=== PATIENT | male | born 1960 | race Caucasian/White ===

== ENCOUNTER 2019-05-18 14:52 | Emergency (ER) | payer MEDICARE, MEDICAID ==
[~2019-05-18] VITALS: Ht 185.5 cm; Wt 110.9 kg
--- NOTE | 2019-05-18 15:11 | ED Integumentary General ---
General Stated Complaint: PICC LINE BOIL Source: patient History of Present Illness Date Seen by Provider: May 18, 2019 Time Seen by Provider: 15:05 Initial Comments 59-year-old male presents to small cutaneous abscess and a PICC insertion site on his right upper arm. Patient reports a PICC line came out in October. Patient reports he had a PICC for long-term antibiotics for a brain abscess. Patient has a follow-up MRI next Tuesday for the brain abscess didn't see how he is doing. Patient noticed a small abscess yesterday. He has no fevers chills or surrounding erythema. Patient denies any other systemic complaints at this time. Allergies and Home Medications Allergies Coded Allergies: No Known Drug Allergies (Unverified , 05/18/19) Patient Home Medication List Home Medication List Reviewed: Yes Review of Systems Review of Systems Constitutional: no symptoms reported Respiratory: no symptoms reported Cardiovascular: no symptoms reported Gastrointestinal: no symptoms reported Musculoskeletal: no symptoms reported Skin: see HPI Psychiatric/Neurological: No Symptoms Reported Past Xagolnw-Rynieg-Givhbs Hx Past Med/Social Hx: Reviewed Nursing Past Med/Soc Hx Physical Exam Vital Signs Capillary Refill : General Appearance: WD/WN, no apparent distress Cardiovascular: normal peripheral pulses, regular rate, rhythm Respiratory: lungs clear, normal breath sounds Skin: other (small 1 cm cutaneous abscess at PICC line insertion site near what appears be a chronic keloid) Procedures/Interventions I&D : Blade Size: 11 I & D Procedure: betadine prep Progress Moderate amount of purulent drainage. Patient tolerated well. Progress/Results/Core Measures Results/Orders My Orders Orders - JOE CAZARES DO Wound Culture (05/18/19 15:15) Progress Progress Note : Time: 15:20 Progress Note Patient with a moderate amount of firm purulent drainage. Patient will be placed on Bactrim. I recommend he follow up with his primary care provider next week for a recheck of symptoms and continuation of care. Patient is stable will be discharged home in stable condition Departure Impression Primary Impression: Cutaneous abscess of left upper extremity Disposition: HOME, SELF-CARE Condition: Stable Departure-Patient Inst. Referrals: SELF,FEMI MCDOWELL (PCP/Family) Primary Care Physician Follow-up next week for recheck of symptoms Patient Instructions: Abscess Incision and Drainage (DC), Skin Abscess Scripts Sulfamethoxazole/Trimethoprim (Bactrim Ds Tablet) 1 Each Tablet 1 EACH PO BID for 7 Days, #14 TAB Prov: JOE CAZARES DO 05/18/19 JOE CAZARES DO May 18, 2019 15:11
[2019-05-18] MEDS ORDERED: SULF1TAB35 PO (15:23)
[2019-05-18 15:53] VITALS: BP 110/88
== END 2019-05-18 16:00 | disposition home or self-care (01) ==
LOC: EDUNIT# 14:52 → ER FS 14:53
DX: L02.414 Cutaneous abscess of left upper limb (principal)
CPT/HCPCS: 87070; 87077; 87205; 99282

== ENCOUNTER → 2020-05-07 | Outpatient (CLI) | payer MEDICARE, MEDICAID ==
[~2020-05-07] MED LIST: GADOBUTROL 15 MMOL/15 ML (GADAVIST) VIAL IV ONE; SULF1TAB35 PO
[2020-05-07 08:36] LABS: ALBUMIN 4.5 GM/DL (3.2-4.5); CHLORIDE 103 MMOL/L (98-107); POTASSIUM 3.9 MMOL/L (3.6-5.0); SODIUM 138 MMOL/L (135-145)
[2020-05-07 08:37] LABS: CALCIUM 9.6 MG/DL (8.5-10.1)
[2020-05-07 08:38] LABS: GLUCOSE 101 MG/DL (70-105); TOTAL PROTEIN 6.9 GM/DL (6.4-8.2)
[2020-05-07 08:39] LABS: CARBON DIOXIDE 23 MMOL/L (21-32)
[2020-05-07 08:40] LABS: BILIRUBIN,TOTAL 0.5 MG/DL (0.1-1.0)
--- NOTE | 2020-05-07 08:41 | Diagnostic Imaging Report ---
Clinical indication: Pre-screening for MRI. Patient has history of brain surgery. Exam: X-ray of the skull, AP and lateral view of the orbits. Comparison: None. Findings: There are craniotomy plates overlying the right side of the head craniotomy region. Dental fillings are noted. There is no evidence of radiodense foreign object on this exam. There is no other craniofacial bone abnormality. The visualized paranasal sinuses are grossly unremarkable. IMPRESSION: There is no evidence of radiodense foreign object that would prevent patient from getting an MRI. Dictated by: Dictated on workstation # [id number]
[2020-05-07 08:42] LABS: ALKALINE PHOSPHATASE 97 U/L (40-136); CREATININE SERUM 1.06 MG/DL (0.60-1.30); GFR ESTIMATED > 60
[2020-05-07 08:43] LABS: BUN/CREATININE RATIO 12
[2020-05-07 08:45] LABS: ALANINE AMINOTRANSFERASE 20 U/L (0-55)
--- NOTE | 2020-05-07 13:25 | Diagnostic Imaging Report ---
PROCEDURE: MR imaging of the brain with and without contrast. TECHNIQUE: Multiplanar, multisequence MR imaging of the brain was performed with and without contrast. INDICATION: Brain abscess one year ago. Status post craniotomy. COMPARISON: None available. FINDINGS: Postoperative findings of right frontal craniotomy and underlying resection bed in the right frontal lobe measures up to 4 cm and abuts the right lateral ventricle. There is surrounding gliosis with no appreciable contrast enhancement. Moderate additional nonspecific T2 hyperintensities in the supratentorial white matter compatible with chronic small vessel ischemic change. Normal morphology of the major midline structures, sella, posterior fossa and cerebellar pontine angle. Normal intracranial flow voids. No hydrocephalus or extra-axial fluid collections. No hemosiderin deposition or evidence of intracranial hemorrhage. No restricted water diffusion. The orbits are unremarkable. The paranasal sinuses and mastoids are clear. Normal bone marrow signal. IMPRESSION: Postoperative findings of a right frontal craniotomy and underlying resection bed in the right frontal lobe. Although there is surrounding gliosis, there is no associated enhancement or mass identified. No acute intracranial MRI findings. Dictated by: Dictated on workstation # [id number]
== END ==
LOC: RAD 09:30
PROVIDERS: ATTEND Neurological Surgery
DX: G06.0 Intracranial abscess and granuloma (principal); Z98.890 Other specified postprocedural states
CPT/HCPCS: 36415; 70553; 80053

== ENCOUNTER 2021-01-19 05:39 | Outpatient (CLI) | payer MEDICARE, MEDICAID ==
[~2021-01-19] VITALS: Ht 185.4 cm; Wt 117.9 kg
[~2021-01-19 05:39] MED LIST changes: -GADOBUTROL 15 MMOL/15 ML (GADAVIST) VIAL IV ONE
[2021-01-19] MEDS ORDERED: BUPR300T98 PO (08:54)
[2021-01-19] MEDS ORDERED: DIAZ10TA3 PO (08:54)
[2021-01-19] MEDS ORDERED: METF-399 PO (08:54)
[2021-01-19] MEDS ORDERED: HALO10TA PO (08:54)
[2021-01-19] MEDS ORDERED: BENZ1TAB6 PO (08:54)
[2021-01-19] MEDS ORDERED: GABA-486 PO (08:54)
== END 2021-01-19 13:17 | disposition home or self-care (01) ==
LOC: PREOP 05:39
PROVIDERS: ATTEND Surgery
DX: Z01.818 Encounter for other preprocedural examination (principal)

== ENCOUNTER 2021-01-26 09:24 | Day surgery (SDC) | payer MEDICARE, MEDICAID ==
[~2021-01-26] VITALS: Ht 185.4 cm; Wt 117.9 kg
[~2021-01-26 09:24] MED LIST changes: +BENZ1TAB6 PO; +BUPR300T98 PO; +DIAZ10TA3 PO; +GABA-486 PO; +HALO10TA PO; +METF-399 PO
[2021-01-26] MEDS ORDERED: LACTATED RINGERS 1,000 ML IV STA (09:47)
[2021-01-26] MEDS ORDERED: PROPOFOL INJECTION 50 ML IV ONE (10:09)
[2021-01-26 10:41] VITALS: BP 111/67
--- NOTE | 2021-01-26 10:41 | Endoscopy Discharge Instruct ---
Endo Procedure/Findings Findings 1.: Diverticulosis 2.: Internal Hemorrhoids 3.: Other Findings (poor prep, retained fecal material) Discharge Instructions - Activity: You might feel a little sleepy until tomorrow. This is due to the medicine you received to relax you. Until tomorrow, you should: NOT drive a car, operate machinery or power tools. NOT drink any alcoholic beverages. NOT make any important decisions or sign importortant papers. Do not return to work until tomorrow, unless otherwise instructed. Resume previous activities tomorrow. Diet: Start by taking liquids. If you tolerate liquids, advance to solid food. 1.: Colonoscopy in 1 year Notify Physician - If you experience excessive bleeding, unusual abdominal pain, fever, or chest pain, contact your doctor immediately. BEAR HART DO Jan 26, 2021 10:41
--- NOTE | 2021-01-26 10:41 | Progress Note-Post Operative ---
Post-Operative Progess Note Surgeon (s)/Card Table Attendant (s) Surgeon BEAR HART DO Card Table Attendant: none Pre-Operative Diagnosis +Cologuard Post-Operative Diagnosis poor prep Diverticula Int hemorrhoids Procedure & Operative Findings Date of Procedure 01/26/21 Procedure Performed/Findings After informed consent was obtained, the patient was brought to the endoscopy suite and placed in the bed in the left lateral decubitus position. He was administered IV sedation by the BUSINESS MANAGER COL[employer] UNIVERSITY, who then monitored his vitals the entire time, heart rate, blood pressure and pulse ox and the scope was inserted, started the colonoscopy. Pushed all the way into about 160 cm able to get all the way to cecum, took a picture of the appendiceal orifice, noted the ileocecal valve and then slowly withdrew the scope, insufflating the circumferential bonilla looking the cecum, up the ascending colon to the hepatic flexure, then down the transverse colon, splenic flexure, into the descending colon, down into the sigmoid and finally into the rectum, retroflexed in the rectal vault, saw some minimal internal hemorrhoids and took a picture of this. He had diverticula seen on left and right side; unfortunately, he had a lot of retained fecal material and unable to suction all of this out because of large pieces. 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 Could not see all the bonilla, so may have missed a polyp; I don't think I missed anything big. The patient tolerated the procedure and he recovered in the endoscopy suite. Anesthesia Type IV sedation by BUSINESS MANAGER [employer]IV[employer]ITY Estimated Blood Loss Estimated blood loss (mL): none Specimens/Packing Specimens Removed none BEAR HART DO Jan 26, 2021 10:41
[2021-01-26 10:46] VITALS: BP 103/65
[2021-01-26 10:50] VITALS: BP 132/82
[2021-01-26 11:12] VITALS: BP 132/82
[2021-01-26 11:20] VITALS: BP 132/79
--- NOTE | 2021-01-26 11:37 | Anesthesia-General Post-Op ---
MAC Patient Condition Mental Status/LOC: Same as Preop Cardiovascular: Satisfactory Nausea/Vomiting: Absent Respiratory: Satisfactory Pain: Controlled Complications: Absent Post Op Complications Complications None Follow Up Care/Instructions Patient Instructions None needed. Anesthesiology Discharge Order Discharge Order Patient is doing well, no complaints, stable vital signs, no apparent adverse anesthesia problems. No complications reported per nursing. GEE AMADOR CRNA Jan 26, 2021 11:37
[2021-01-26 11:50] VITALS: BP 132/79
== END 2021-01-26 11:40 | disposition home or self-care (01) ==
LOC: ENDO 09:24
PROVIDERS: ATTEND Surgery
DX: K57.30 Diverticulosis of large intestine without perforation or abscess without bleeding (principal); K64.8 Other hemorrhoids; R19.5 Other fecal abnormalities; J40 Bronchitis, not specified as acute or chronic; F20.9 Schizophrenia, unspecified; F17.210 Nicotine dependence, cigarettes, uncomplicated; Z79.2 Long term (current) use of antibiotics; Z79.899 Other long term (current) drug therapy

== ENCOUNTER → 2022-03-22 | Outpatient (CLI) | payer MEDICARE, MEDICAID ==
[~2022-03-22] MED LIST changes: -SULF1TAB35 PO; +SULF1TAB38 PO
--- NOTE | 2022-03-22 15:14 | Diagnostic Imaging Report ---
TIME OF EXAM: 03/22/2022 10:08 AM REASON FOR EXAM: Lung cancer screening. 49 pack year smoking history. COMPARISON: None. TECHNIQUE: Low Dose CT helical images obtained through the chest. Sagittal and coronal reformats were obtained and reviewed. Dose reduction techniques were utilized. CTDI vol: 2.22 mGy FINDINGS: Nodules: -- A) 9 x 7 mm, indeterminate noncalcified solid [right middle lobe] nodule (image 158 series 2 and image 40 series 602) Lungs: Lung volumes are normal. Scattered centrilobular emphysema is seen. No significant fibrosis is present. There is no appreciable bronchiectasis. No pulmonary mass or consolidation is present. No central endoluminal airway lesion is seen. Heart and Mediastinum: Heart size is within normal limits. Small amount of coronary calcifications are present. Aortic atherosclerosis is present without aneurysm. No pericardial effusion is present. No axillary, supraclavicular, mediastinal, internal mammary, or hilar adenopathy is present by CT size criteria. Normal size and attenuation of the visualized thyroid gland. Pleura: Normal pleural spaces. No effusion or pneumothorax. No pleural nodularity or mass. Abdomen: Nonspecific thickening of the adrenal glands is noted. No acute abnormalities are seen in the included upper abdomen. Bones and soft tissues: Regional skeletal and soft tissue structures are age-appropriate. IMPRESSION: 1. Solid nodule in the right middle lobe measuring up to 0.9 cm. Recommend short interval follow-up with chest CT in 3 months. Alternatively, PET/CT may be considered to evaluate for hypermetabolic activity. 2. No thoracic lymphadenopathy. 3. Centrilobular emphysema. Result code: Category 4: Suspicious Follow up: 3 month LDCT or PET/CT Dictated by: Dictated on workstation # [id number]
== END ==
LOC: RAD 09:24
PROVIDERS: ATTEND Family Medicine
DX: Z12.2 Encounter for screening for malignant neoplasm of respiratory organs (principal); J43.2 Centrilobular emphysema; F17.210 Nicotine dependence, cigarettes, uncomplicated
CPT/HCPCS: 71271

== ENCOUNTER 2022-05-19 06:21 | Outpatient (CLI) | payer MEDICARE, MEDICAID ==
[~2022-05-19] VITALS: Ht 185.4 cm; Wt 114.8 kg
[2022-05-19] MEDS ORDERED: ACHD5005 PO (11:19)
== END 2022-05-19 11:24 | disposition home or self-care (01) ==
LOC: PREOP 06:21
PROVIDERS: ATTEND Surgery
DX: Z01.818 Encounter for other preprocedural examination (principal)

== ENCOUNTER 2022-05-31 08:36 | Day surgery (SDC) | payer MEDICARE, MEDICAID ==
[~2022-05-31] VITALS: Ht 185.4 cm; Wt 114.8 kg
[~2022-05-31 08:36] MED LIST changes: +ACHD5005 PO
[2022-05-31] MEDS ORDERED: LACTATED RINGERS 1,000 ML IV STA (08:40)
[2022-05-31 09:00] VITALS: BP 130/83
--- NOTE | 2022-05-31 09:03 | Progress Note-Pre Operative ---
Pre-Operative Progress Note Date of Available H&P: May 18, 2022 Date H&P Reviewed: May 31, 2022 Time H&P Reviewed: 09:02 History & Physical: H&P Reviewed, Patient Examed, No changes noted Pre-Operative Diagnosis: +BEAR Rivas DO May 31, 2022 09:03
[2022-05-31] MEDS ORDERED: PROPOFOL INJECTION 50 ML IV ONE (10:30)
--- NOTE | 2022-05-31 11:18 | Progress Note-Post Operative ---
Post-Operative Progess Note Surgeon (s)/Flight Inspector (s) Surgeon BEAR HART DO Flight Inspector: Sandra Coronado, WILLISII Pre-Operative Diagnosis +Cologuard Post-Operative Diagnosis Polyps diverticula int hemorrhoids Procedure & Operative Findings Date of Procedure 05/31/22 Procedure Performed/Findings Colonoscopy with snare polypectomy PROCEDURE NOTE: After informed consent was obtained, the patient was brought to the endoscopy suite, placed in bed in left lateral decubitus position. He was administered IV sedation by the DRIER OPERATOR HEAD who then monitored his vitals the entire time, heart rate, blood pressure and pulse ox and the scope was inserted, pushed all the way to about 150 cm; on the way in noted diverticula and took a picture of them. Pushed into the cecum, took a picture of appendiceal orifice and then slowly withdrew the scope insufflating to look circumferentially at the bonilla starting in the cecum, up the ascending colon; where I found a polyp and removed with snare. Then to the hepatic flexure, down the transverse colon to the splenic flexure, and into the descending colon. Here I found another polyp that was removed with snare polypectomy. Into the sigmoid where I found another polyp; which was removed. Finally into the rectal vault where I found two polyps and also removed them. I then pulled the scope out and took a picture of the internal hemorrhoids. The patient tolerated the procedure. He was recovered in endoscopy suite. Recommended for repeat colonoscopy in 3 years. Anesthesia Type IV sedation by DRIER OPERATOR HEAD Estimated Blood Loss Estimated blood loss (mL): scant Specimens/Packing Specimens Removed asc polyp desc polyp sigmoid polyp rectal polyp x 2 BEAR HART DO May 31, 2022 11:18
--- NOTE | 2022-05-31 11:19 | Endoscopy Discharge Instruct ---
Endo Procedure/Findings Findings 1.: Polyp 2.: Diverticulosis 3.: Internal Hemorrhoids Discharge Instructions - Activity: You might feel a little sleepy until tomorrow. This is due to the medicine you received to relax you. Until tomorrow, you should: NOT drive a car, operate machinery or power tools. NOT drink any alcoholic beverages. NOT make any important decisions or sign importortant papers. Do not return to work until tomorrow, unless otherwise instructed. Resume previous activities tomorrow. Diet: Start by taking liquids. If you tolerate liquids, advance to solid food. 1.: Colonscopy in 3 years Notify Physician - If you experience excessive bleeding, unusual abdominal pain, fever, or chest pain, contact your doctor immediately. BEAR HART DO May 31, 2022 11:19
--- NOTE | 2022-05-31 11:19 | Anesthesia-General Post-Op ---
MAC Patient Condition Mental Status/LOC: Same as Preop Cardiovascular: Satisfactory Nausea/Vomiting: Absent Respiratory: Satisfactory Pain: Controlled Complications: Absent Post Op Complications Complications None Follow Up Care/Instructions Patient Instructions None needed. Anesthesiology Discharge Order Discharge Order Patient is doing well, no complaints, stable vital signs, no apparent adverse anesthesia problems. No complications reported per nursing. NORA HUANG CRNA May 31, 2022 11:19
[2022-05-31 11:20] VITALS: BP 129/78
[2022-05-31 11:25] VITALS: BP 116/78
== END 2022-05-31 11:47 | disposition home or self-care (01) ==
LOC: ENDO 08:36
PROVIDERS: ATTEND Surgery
DX: D12.2 Benign neoplasm of ascending colon (principal); D12.4 Benign neoplasm of descending colon; K63.5 Polyp of colon; K62.1 Rectal polyp; K57.30 Diverticulosis of large intestine without perforation or abscess without bleeding; K64.8 Other hemorrhoids; E11.9 Type 2 diabetes mellitus without complications; E66.9 Obesity, unspecified; Z68.33 Body mass index [BMI] 33.0-33.9, adult; F17.210 Nicotine dependence, cigarettes, uncomplicated; Z79.84 Long term (current) use of oral hypoglycemic drugs
CPT/HCPCS: 82947

== ENCOUNTER → 2022-06-29 | Outpatient (CLI) | payer MEDICARE, MEDICAID ==
--- NOTE | 2022-06-29 14:46 | Diagnostic Imaging Report ---
Indication: Lung nodule follow-up TECHNIQUE: Multiple contiguous axial images were obtained through the chest without the use of intravenous contrast. Auto Exposure Controls were utilized during the CT exam to meet ALARA standards for radiation dose reduction. CT chest obtained without IV contrast COMPARISON: 03/22/2022. There are no enlarged mediastinal or hilar nodes. There are no enlarged axillary nodes or chest wall lesions. There is no pleural or pericardial fluid. Aorta is not aneurysmal. Visualized portions of the upper abdomen demonstrate a small cyst in the left kidney anteriorly. There is thickening or nodularity noted in the left adrenal gland which appears similar to the prior study. Lung parenchymal windows demonstrate emphysematous changes. There is limitation secondary to motion artifact. There is no consolidation. The right middle lobe nodule described in the previous study is less well-seen due to motion artifact but appears to be without significant change in size. IMPRESSION: Unfortunately, the patient had significant respiratory motion during the scan, but the right middle lobe 9 x 7 mm nodule described on the previous screening lung CT appears without significant change. Recommend continued 3 month follow-up. There are diffuse emphysematous changes. There is no acute abnormality otherwise. Dictated by: Dictated on workstation # [id number]
== END ==
LOC: RAD FS 07:47
PROVIDERS: ATTEND Family Medicine
DX: J43.9 Emphysema, unspecified (principal); R91.1 Solitary pulmonary nodule
CPT/HCPCS: 71250

== ENCOUNTER → 2022-10-01 | Outpatient (CLI) | payer MEDICARE, MEDICAID ==
--- NOTE | 2022-10-01 14:28 | Diagnostic Imaging Report ---
PROCEDURE: CT chest without contrast. TECHNIQUE: Multiple contiguous axial images were obtained through the chest without the use of intravenous contrast. Auto Exposure Controls were utilized during the CT exam to meet ALARA standards for radiation dose reduction. INDICATION: Pulmonary nodule. COMPARISON: 06/29/2022. FINDINGS: There has been further increase in size of medial right middle lobe pulmonary nodule. This reaches 1.6 x 1.1 cm and has irregular margins. Otherwise, mosaic appearance of the lungs with areas of air trapping are again noted. There is no other evidence of pulmonary mass or consolidation. There is no pathologically enlarged adenopathy in the chest. Coronary artery calcification is noted. There is low density in the liver indicating steatosis with continued enlargement of the adrenal glands, greater on the left. This is likely related to adenoma. IMPRESSION: Further increase in size of irregular right middle lobe nodule is suspicious for malignancy. This could be assessed with PET imaging which would also allow evaluation of adrenal glands. Although the nodule is intimately associated with pulmonary vasculature, consideration could be given to percutaneous biopsy of the right middle lobe lesion, if warranted. Dictated by: Dictated on workstation # [id number]
== END ==
LOC: RAD FS 13:08
PROVIDERS: ATTEND Family Medicine
DX: R91.1 Solitary pulmonary nodule (principal)
CPT/HCPCS: 71250

== ENCOUNTER → 2022-10-28 | Outpatient (CLI) | payer OTHER, MEDICAID ==
[~2022-10-28] MED LIST changes: -BENZ1TAB6 PO; +BENZ1TAB74 PO; +CATHETER FLUSH 10 ML SYR IVP PRN
--- NOTE | 2022-10-29 09:11 | Diagnostic Imaging Report ---
INDICATION: Pulmonary nodule, initial staging. Serum blood glucose level at the time of injection is 113 mg/dL. The patient was administered 9.9 mCi F-18 FDG intravenously in the right antecubital location and PET imaging was performed from the top of the skull to mid thighs. Noncontrast CT was also performed for attenuation correction and anatomic correlation. COMPARISON is made with prior CT of the chest from 10/01/2022. There appear to be postoperative changes of right frontal craniotomy. No suspicious areas of intracranial hypermetabolism are identified. Soft tissues of the neck are unremarkable. The irregular nodule noted in the right middle lobe on recent CT does show some hypermetabolism with an SUV max of 4.7. No other pulmonary parenchymal regions of hypermetabolism are identified. There is no mediastinal or hilar hypermetabolism. Imaging through the abdomen and pelvis demonstrates physiologic activity throughout the gastrointestinal and genitourinary tracts. No suspicious areas of hypermetabolism are identified. Specifically, the adrenal glands are unremarkable and they are do not show FDG avidity. IMPRESSION: The right middle lobe pulmonary nodule does show FDG avidity and is concerning for a small malignancy. No other areas of hypermetabolism are identified. Dictated by: Dictated on workstation # [id number]
== END ==
LOC: RAD 11:15
PROVIDERS: ATTEND Family Medicine
DX: R91.1 Solitary pulmonary nodule (principal)
CPT/HCPCS: 78815; 82947; A9552

== ENCOUNTER 2023-01-31 09:38 | Outpatient (RCR) | payer MEDICARE, MEDICAID ==
[~2023-01-31 09:38] MED LIST changes: -CATHETER FLUSH 10 ML SYR IVP PRN
== END 2023-02-11 | disposition home or self-care (01) ==
LOC: ONC 09:38
PROVIDERS: ATTEND Radiology Radiation Oncology
DX: Z51.0 Encounter for antineoplastic radiation therapy (principal); C34.2 Malignant neoplasm of middle lobe, bronchus or lung; J43.9 Emphysema, unspecified; E78.5 Hyperlipidemia, unspecified; E11.9 Type 2 diabetes mellitus without complications
CPT/HCPCS: 77293; 77300; 77301; 77334; 77336; 77338; 77370; 77373; 99205